=== PATIENT | female | born 1955 | race Caucasian/White ===

== ENCOUNTER 2018-05-08 12:08 | Inpatient (IN) | payer OTHER ==
[~2018-05-08] VITALS: Ht 162.6 cm; Wt 71.7 kg
[~2018-05-08 12:08] MED LIST: ASPIR 8181 MG PO; ENALAPRIL MALEA20 MG PO; FLA250 PO; GLU850 PO; LEV500 PO; METOPROLOL TART50 MG PO; PROCARDIA XL90 MG PO; SIMVASTATIN20 M1 PO; ZES10 PO
[2018-05-08 12:26] VITALS: Ht 162.6 cm; Wt 71.7 kg
[2018-05-08 13:30] LABS: CALCIUM 9.4 mg/dL (8.5-10.1); CARBON DIOXIDE 30.9 mmol/L (21-32); CREATININE SERUM 1.3 mg/dL (0.6-1.0); POTASSIUM SERUM 4.5 mmol/L (3.5-5.1)
[2018-05-08 13:33] LABS: BILIRUBIN TOTAL 0.5 mg/dL (0.20-1.00)
[2018-05-08 13:34] LABS: ALBUMIN 3.2 g/dL (3.4-5.0); TOTAL PROTEIN, SERUM 8.5 g/dL (6.4-8.2)
[2018-05-08 14:12] LABS: UA SPECIFIC GRAVITY <=1.005 (1.005-1.035); microscopic required? YES; urine erythrocyte TRACE (NEGATIVE)
[2018-05-08 14:40] LABS: PLATELET COUNT 233 x10^3mcL (130-400); RED CELL DISTRIBUTION WIDTH 13.6 % (11.5-14.5)
[2018-05-08 14:44] LABS: BASOPHIL % 0 % (0-2)
[2018-05-08 17:23] LABS: AMPHETAMINE QUAL UR NONE DETECTED (See below)
[2018-05-08 17:27] LABS: T3 TOTAL 0.67 ng/mL
[2018-05-08 17:43] LABS: CHOLESTEROL/HDL RATIO 3.1; MAGNESIUM 1.8 mg/dL (1.8-2.4); PHOSPHOROUS 2.6 mg/dL (2.5-4.9)
[2018-05-08 17:44] LABS: FREE T4 1.32 ng/dL (0.76-1.46); FREE THYROXINE INDEX 3.1 ug/dL (1.4-4.5); T4(THYROXINE) 8.3 ug/dL (4.7-13.3)
[2018-05-08 18:48] VITALS: BP 163/94
[2018-05-08 21:17] VITALS: BP 139/83
[2018-05-09 02:33] VITALS: BP 141/51
[2018-05-09 05:44] VITALS: BP 157/79
[2018-05-09 06:36] LABS: BASOPHIL % 0.3 % (0-2); PLATELET COUNT 216 x10^3mcL (130-400); RED CELL DISTRIBUTION WIDTH 13.5 % (11.5-14.5)
[2018-05-09 06:38] LABS: CALCIUM 8.1 mg/dL (8.5-10.1); CARBON DIOXIDE 28.4 mmol/L (21-32); CHLORIDE SERUM 109 mmol/L (98-107); CREATININE SERUM 0.6 mg/dL (0.6-1.0); GFR1 > 60 mL/min; GLUCOSE SERUM 109 mg/dL (74-106); POTASSIUM SERUM 3.1 mmol/L (3.5-5.1); SODIUM SERUM 146 mmol/L (136-145)
[2018-05-09 09:31] VITALS: BP 130/80
[2018-05-09 13:31] VITALS: BP 128/68
[2018-05-09 17:03] VITALS: BP 141/85
[2018-05-09 20:53] VITALS: BP 126/72
[2018-05-10 05:27] VITALS: BP 104/74
[2018-05-10 07:36] LABS: CALCIUM 8.2 mg/dL (8.5-10.1); CHLORIDE SERUM 109 mmol/L (98-107); CREATININE SERUM 0.6 mg/dL (0.6-1.0); GFR1 > 60 mL/min; GLUCOSE SERUM 139 mg/dL (74-106); POTASSIUM SERUM 3.5 mmol/L (3.5-5.1); SODIUM SERUM 144 mmol/L (136-145)
[2018-05-10 07:43] LABS: BASOPHIL % 0.1 % (0-2); PLATELET COUNT 194 x10^3mcL (130-400); RED CELL DISTRIBUTION WIDTH 12.6 % (11.5-14.5)
[2018-05-10 09:02] VITALS: BP 104/65
[2018-05-10 13:23] VITALS: BP 114/70
[2018-05-10 16:52] VITALS: BP 139/79
[2018-05-10 19:15] VITALS: BP 122/83
[2018-05-11 05:46] VITALS: BP 152/82
[2018-05-11 06:46] LABS: BASOPHIL % 0.4 % (0-2); PLATELET COUNT 171 x10^3mcL (130-400); RED CELL DISTRIBUTION WIDTH 13.5 % (11.5-14.5)
[2018-05-11 07:03] LABS: CALCIUM 8.9 mg/dL (8.5-10.1); CARBON DIOXIDE 23.7 mmol/L (21-32); CHLORIDE SERUM 105 mmol/L (98-107); CREATININE SERUM 0.7 mg/dL (0.6-1.0); GFR1 > 60 mL/min; GLUCOSE SERUM 332 mg/dL (74-106); POTASSIUM SERUM 3.9 mmol/L (3.5-5.1); SODIUM SERUM 137 mmol/L (136-145)
[2018-05-11 07:43] VITALS: BP 145/90
[2018-05-11 11:54] VITALS: BP 142/90
[2018-05-11 13:20] VITALS: BP 142/90
== END 2018-05-11 15:25 | DRG 469 ==
LOC: ED 12:08 → DU 15:16
PROVIDERS: Emergency Medicine; ADMIT General Practice
DX: N17.0 Acute kidney failure with tubular necrosis (principal); E44.0 Moderate protein-calorie malnutrition; E11.65 Type 2 diabetes mellitus with hyperglycemia; E87.1 Hypo-osmolality and hyponatremia; N39.0 Urinary tract infection, site not specified; I69.354 Hemiplegia and hemiparesis following cerebral infarction affecting left non-dominant side; G90.8 Other disorders of autonomic nervous system; E86.0 Dehydration; E87.6 Hypokalemia; I16.0 Hypertensive urgency; F15.10 Other stimulant abuse, uncomplicated; I25.2 Old myocardial infarction; Z79.82 Long term (current) use of aspirin; Z68.32 Body mass index [BMI] 32.0-32.9, adult; Z79.84 Long term (current) use of oral hypoglycemic drugs; Z91.14 Patient's other noncompliance with medication regimen; Z79.899 Other long term (current) drug therapy; Z83.3 Family history of diabetes mellitus; Z82.49 Family history of ischemic heart disease and other diseases of the circulatory system
CPT/HCPCS: 36600; 82962; 84439; 97110-GP; 97112-GP; 97116-GP; 97530-GP; J0696; J1815; J7030; Q0092